=== PATIENT | male | born 2000 | race Caucasian/White ===

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

== ENCOUNTER 2023-07-08 20:37 | Emergency (ER) | payer OTHER ==
[2023-07-08 20:43] VITALS: BP 146/90; PULSE 98; RESP 18; TEMP 98.4; BMI 36.5
[2023-07-08] MEDS ORDERED: KETOROLAC TROMETHAMINE 30 MG/1 ML VIAL IM ONE (21:25)
[2023-07-08] MEDS ORDERED: KETOROLAC TROMETHAMINE 30 MG/1 ML VIAL ONE (21:34)
[2023-07-08] MEDS ORDERED: ALBUTEROL SO4 2.5/IPRATROPIUM 0.5 INH SOL 3 ML VIAL.NEB. NEB ONE ×2 (21:35→21:40)
[2023-07-08] MEDS ORDERED: IBUPROFEN 600 MG TABLET (FP) PO ONE ×3 (21:35→21:40)
== END 2023-07-08 22:25 | disposition home or self-care (01) ==
LOC: JERFT 20:37
PROC: 3E0233Z Introduction of Anti-inflammatory into Muscle, Percutaneous Approach (ICD-10-PCS; principal; 2023-07-08)
PROC: 3E0F7GC Introduction of Other Therapeutic Substance into Respiratory Tract, Via Natural or Artificial Opening (ICD-10-PCS; 2023-07-08)
DX: J40 Bronchitis, not specified as acute or chronic (principal)
CPT/HCPCS: 99284-25